=== PATIENT | female | born 1945 | race Two or more races ===

== ENCOUNTER 2018-03-03 09:11 | Outpatient (CLI) | payer OTHER ==
[~2018-03-03 09:11] MED LIST: ALBUTEROL0.63 MG/3; AMPICILLIN SOD500 MG; IPRATROPIU0.2 MG/1 M; MUCINEX600 MG; POLY119PG PO; PROAIR HFA8.5 GM; SINGULAIR4 MG; TESSALON PERLE100 M1; TRIAMCINOLONE16.9 ML; ULTRACET PO
== END 2018-03-03 09:28 | disposition home or self-care (01) ==
LOC: SONOGRAMA 09:11 → MAMO-SONO 09:15 → SONOGRAMA 09:28
DX: R10.30 Lower abdominal pain, unspecified (principal); R11.0 Nausea; K57.30 Diverticulosis of large intestine without perforation or abscess without bleeding; E73.8 Other lactose intolerance

== ENCOUNTER 2018-07-01 08:39 | Outpatient (CLI) | payer OTHER | END 2018-07-01 08:53 | disposition home or self-care (01) | LOC: MAMO-SONO 08:39 | DX: Z12.31 Encounter for screening mammogram for malignant neoplasm of breast (principal); Z87.898 Personal history of other specified conditions; R63.4 Abnormal weight loss ==

== ENCOUNTER 2019-01-12 10:19 | Outpatient (CLI) | payer OTHER | END 2019-01-12 10:43 | disposition home or self-care (01) | LOC: RAD 10:19 | DX: M47.26 Other spondylosis with radiculopathy, lumbar region (principal); M54.6 Pain in thoracic spine; E04.1 Nontoxic single thyroid nodule | CPT/HCPCS: 72146; 72148 ==

== ENCOUNTER 2019-05-25 14:40 | Outpatient (CLI) | payer OTHER | END 2019-05-25 14:50 | disposition home or self-care (01) | LOC: LAB 14:40 | DX: N20.0 Calculus of kidney (principal) ==

== ENCOUNTER 2019-06-02 13:11 | Outpatient (CLI) | payer OTHER | END 2019-06-02 13:13 | disposition home or self-care (01) | LOC: MRI 13:11 | DX: M54.40 Lumbago with sciatica, unspecified side (principal); M54.12 Radiculopathy, cervical region | CPT/HCPCS: 72156; 72158; A9575 ==

== ENCOUNTER 2019-07-31 10:25 | Emergency (ER) | payer OTHER ==
[~2019-07-31] VITALS: Ht 165.1 cm; Wt 62.1 kg
[2019-07-31] MEDS ORDERED: RELAFEN PO (12:04)
== END 2019-07-31 20:46 | disposition home or self-care (01) ==
LOC: ER 10:25 → CPU-OBS 10:28 → ER 10:28
DX: R07.89 Other chest pain (principal); R00.2 Palpitations